=== PATIENT | female | born 1975 | race Caucasian/White ===

== ENCOUNTER → 2017-03-24 | Outpatient (CLI) | payer OTHER ==
[~2017-03-24] MED LIST: ADVAIRDISKUS; CIPRO; CLARITIN10 M2; DEMULEN 1-35-21 EACH; FLAGYL; PROTONIX40 MG PO; PROVENTIL; ULTRAM 50MG TAB50 MG PO; VICODIN 5-5001 EACH PO; ZANTAC 150MG T150 M1 PO; ZOVIA 1-35E1 EACH
== END ==
LOC: RAD 01:27
DX: Z12.31 Encounter for screening mammogram for malignant neoplasm of breast (principal)

== ENCOUNTER → 2018-05-10 | Outpatient (CLI) | payer OTHER | LOC: RAD 01:06 | DX: Z12.31 Encounter for screening mammogram for malignant neoplasm of breast (principal) ==

== ENCOUNTER → 2019-08-08 | Outpatient (CLI) | payer OTHER | LOC: BC 08:46 | DX: Z12.31 Encounter for screening mammogram for malignant neoplasm of breast (principal) ==

== ENCOUNTER → 2020-08-23 | Outpatient (CLI) | payer OTHER | LOC: BC 12:43 | PROVIDERS: ATTEND Obstetrics & Gynecology | DX: Z12.31 Encounter for screening mammogram for malignant neoplasm of breast (principal) ==